=== PATIENT | male | born 1970 | race Caucasian/White ===

== ENCOUNTER 2018-08-06 10:30 | Inpatient (IN) | payer OTHER ==
[2018-08-06] VITALS (12 sets, daily range): BP systolic 140–170; BP diastolic 83–103; Ht 180.3 cm; Wt 100.0 kg
[~2018-08-06] VITALS: Ht 180.3 cm; Wt 100.0 kg
--- NOTE | ~2018-08-06 | HEMODYNAMI ---
PATIENT:MAUDE PERSAUD MEDICAL RECORD: [id number] : 66 LOCATION:[facility] ADMISSION DATE: 08/06/18 Generatedon:08/06/201814:22 Patient name: MAUDE PERSAUD Patient #: [id number] SSN: : 1970 Date of study: 08/06/2018 Page: Of Hemodynamic Procedure Report Patient Data Patient Demographics Procedure consent was obtained First Name: MAUDE Gender: Male Last Name: CORI : 1970 [facility] Initial: JULIO Age: 47 year(s) Patient #: [id number] Race: Unknown Additional ID: [id number] Contact details [address]: [address] [place] [address] rd State: [place] City: [place] Zip code: [address] Past Medical History Allergies Allergen Reaction Date Comments Reported Penicillins 08/06/2018 Admission Admission Data Admission Date: 08/06/2018 Admission Time: 10:30 Lab Results Lab Result Date: 08/06/2018 Lab Result Time: 0:00 Biochemistry Name Units Result Min Max BUN mg/dl 13 --(--*-)-- 7 18 Creatinine mg/dl 1 --(--*-)-- 0.6 1.3 CBC Name Units Result Min Max Hemoglobin g/dl 14.6 --(-*--)-- 13.5 17.5 Procedure Procedure Types Cath Procedure Diagnostic Procedure LHC LH w/Coronaries Sedation Charges Moderate Sedation up to 45 minutes PCI Procedure Coronary Stent Coronary Stent Initial Peripheral Cath Diagnostic Procedure Supercalender Operator Peripheral Procedures Xmnze-Bbemome-Bbi-Off Procedure Description Procedure Date Procedure Date: 08/06/2018 Procedure Start Time: 13:15 Procedure End Time: 14:20 Procedure Staff Name Function Marshal Shankar MD Performing Physician Eugenia Benavidez RT Monitor James Haywood RT Scrub Frederick Bardales RT Carpet Sewing Machine Operator Michael Christensen RN Nurse Procedure Data Cath Procedure Fluoroscopy Diagnostic fluoroscopy Total fluoroscopy Time: time: 21.8 min 21.8 min Diagnostic fluoroscopy Total fluoroscopy dose: dose: 3617 mGy 3617 mGy Contrast Material Contrast Material Type Amount (ml) Isovue 300 323 Entry Location Entry Primary Successful Side Size Upsize Upsize Entry Closure Succes sful Closure Location (Fr) 1 (Fr) 2 (Fr) Remarks Device Remarks Femoral Right 5 Fr 6 Fr Exoseal artery Short Estimated blood loss: 10 ml Diagnostic catheters Device Type Used For End Catheter Placement MULTIPACK JL 4.0 5Fr Procedure catheter MULTIPACK 3DRC 5Fr Procedure catheter MULTIPACK Pigtail 5 Fr Procedure catheter Procedure Complications No complications Procedure Medications Medication Administration Route Dosage Oxygen etCO2 Nasal cannula 2 l/min Lidocaine 2% added to field 20 Heparin Flush Bag added to field 2 bags (1000units/500ml NS) 0.9% NaCl I.V. 100 ml/hr Versed I.V. 2 mg Fentanyl I.V. 100 mcg Versed I.V. 1 mg Fentanyl I.V. 50 mcg Heparin Bolus I.V. 4000 units Integrilin (Bolus I.V. 8.5 ml 2mg/ml) Vasotec 2.5 mg Versed I.V. 2 mg Fentanyl I.V. 50 mcg Heparin Bolus I.V. 2000 units Versed I.V. 1 mg Fentanyl I.V. 100 mcg Clonidine P.O. 0.1 mg Plavix P.O. 600 mg Hemodynamics Rest HGB: 14.6 (g/dl) Heart Rate: 65 (bpm) Pressure Samples Time Site Value (mmHg) Purpose Heart Use Rate(bpm) 13:22 LV 217/24,52 Snapshot 69 13:22 AO 159/99(123) Pullback 74 13:22 LV 177/13,40 Pullback 74 13:29 AO 148/76(107) Snapshot 83 13:29 AO 153/64(97) Snapshot 81 13:29 AO 151/63(95) Snapshot 79 13:49 AO 199/108(143) Snapshot 72 Gradients Valve Time Site 1 Site 2 Mean SEP/DFP Peak To Heart Use (mmHg) (sec/min) Peak Rate (mmHg) (bpm) Aortic 13:22 LV AO 16 18 18 74 177/13,40 159/99(123) Calculations Valve P-P Mean Valve Index Valve Source Name Gradient Area Flow (cm2) Aortic 18 16 18 16 Snapshots Pre Cath Intra NCS Post Cath Vital Signs Time Heart Resp SPO2 etCO2 NIBP (mmHg) Rhythm Pain Sedation Rate (ipm) (%) (mmHg) Status Level (bpm) 13:00:45 58 19 98 0 180/94(139) NSR 0 (11) 10(A) , No pain 13:05:03 72 22 99 34.9 168/96(145) NSR 0 (11) 10(A) , No pain 13:09:21 65 17 98 37.1 161/91(105) NSR 0 (11) 10(A) , No pain 13:17:08 83 12 97 1.5 195/102(0) NSR 0 (11) 9(A) , No pain 13:20:49 64 18 94 29.6 141/107(140) NSR 0 (11) 9(A) , No pain 13:27:10 65 15 94 46.2 160/86(0) NSR 0 (11) 9(A) , No pain 13:29:58 81 18 94 25.7 158/96(136) NSR 0 (11) 9(A) , No pain 13:34:28 60 16 99 44.7 174/110(0) NSR 0 (11) 9(A) , No pain 13:38:57 57 15 100 36.4 182/119(165) NSR 0 (11) 9(A) , No pain 13:43:25 62 14 100 37.9 196/107(145) NSR 0 (11) 9(A) , No pain 13:47:55 73 18 100 35.6 203/113(170) NSR w/ ST 6 (11) 10(A) Elevation , Intense 13:52:26 78 19 100 28.8 198/126(174) NSR w/ ST 6 (11) 9(A) Elevation , Intense 13:58:08 79 17 98 32.6 203/124(155) NSR w/ ST 0 (11) 9(A) Elevation , No pain 14:02:34 76 14 99 17.4 180/102(164) NSR 0 (11) 9(A) , No pain 14:07:51 73 17 96 45.5 200/95(155) NSR 0 (11) 10(A) , No pain 14:12:05 79 14 99 34.1 166/98(154) NSR 0 (11) 10(A) , No pain 14:16:24 75 15 94 38.6 159/122(152) NSR 0 (11) 10(A) , No pain 14:21:43 75 10 99 34.8 171/101(149) NSR 0 (11) 10(A) , No pain Medications Time Medication Route Dose Verified Delivered Reason Notes Effectiveness by by 13:00:31 Oxygen etCO2 2 Marshal Buffie used for Nasal l/min [facility] Jean Christensen RN procedure cannula 13:00:38 Lidocaine 2% added 20ml Marshal Marshal for local to vial [facility] anesthetic field MD MAC 13:00:44 Heparin Flush added 2 Marshal Marshal used for Bag to bags [facility] procedure (1000units/500ml field MD MAC NS) 13:00:55 0.9% NaCl I.V. 100 Marshal Buffie Per physician ml/hr [facility] Jean Christensen RN, MD 13:10:12 Versed I.V. 2 mg Marshal Buffie for sedation [facility] Jean Christensen RN, MD 13:10:18 Fentanyl I.V. 100 Marshal Buffie for sedation mcg [facility] Jean Christensen RN, MD 13:20:37 Versed I.V. 1 mg Marshal Buffie for sedation [facility] Jean Christensen RN, MD 13:20:41 Fentanyl I.V. 50 Marshal Buffie for sedation mcg [facility] Jean Christensen RN, MD 13:26:25 Heparin Bolus I.V. 4000 Marshal Buffie for verif ied units [facility] Jean Christensen RN anticoagulation with dr MD flores 13:27:37 Integrilin I.V. 8.5 Marshal Buffie for Waste d (Bolus 2mg/ml) ml [facility] Jean Christensen RN antiplatelet 1.5 ml MD therapy of vial 13:44:12 Vasotec IV 2.5 Marshal Buffie Per physician mg [facility] Jean Christensen RN, MD 13:49:46 Versed I.V. 2 mg Marshal Buffie for sedation [facility] Jean Christensen RN, MD 13:49:50 Fentanyl I.V. 50 Marshal Buffie for sedation mcg [facility] Jean Christensen RN, MD 13:54:28 Heparin Bolus I.V. 2000 Marshal Buffie for verif ied units [facility] Jean Christensen RN anticoagulation with dr MD flores 14:02:04 Versed I.V. 1 mg Marshal Buffie for sedation [facility] Jean Christensen RN, MD 14:02:08 Fentanyl I.V. 100 Marshal Buffie for sedation [facility] Christensen RN, MD 14:15:14 Clonidine P.O. 0.1 [address] Rodriguez for mg [facility] Jean Christensen RN hypertension MD 14:15:19 Plavix P.O. 600 Marshal Rodriguez for mg [facility] Jean Christensen RN antiplatelet MD therapy Procedure Log Time Note 12:30:44 Signed procedure consent form obtained from patient. 12:30:46 Diagnostic Cath status Elective 12:41:24 Patient allergic to Penicillins 12:42:57 Lab Result : Creatinine 1 mg/dl 12::57 Lab Result : BUN 13 mg/dl 12:42:57 Lab Result : Hemoglobin 14.6 g/dl 12:46:51 Frederick Bardales RT(R) sent for patient. Start room use. 12:46:52 Time tracking: Regular hours (M-F 7:00 - 5:00) 12:46:55 Plan of Care:Hemodynamics will remain stable., Cardiac rhythm will remain stable., Comfort level will be maintained., Respiratory function will remain adequate., Patient/ family verbilizes understanding of procedure., Procedure tolerated without complication., Recovers from procedure without complications.. 12:53:52 Patient received from Pre/Post Procedure Room to CCL 2 Alert and oriented. Tansferred to table in Supine position. 12:53:53 Warm blankets applied, and jerson hugger turned on for patient comfort. 12:53:53 Correct patient and procedure confirmed by team. 12:53:55 ECG and BP/O2 sat monitors applied to patient. 12:59:33 Vital chart was started 12:59:34 Baseline sample Acquired. 12:59:38 Rhythm: sinus rhythm 12:59:39 Full Disclosure recording started 12:59:57 H&P Date Dictated: 07/30/2018 Within 30 days and on chart., New H&P dictated by physician.. 12:59:58 Pre-procedure instructions explained to patient. 12:59:58 Pre-op teaching completed and patient verbalized understanding. 13:00:18 Family in patients room. 13:00:22 Patient NPO since Midnight. 13:00:24 Is patient on blood thinner?No 13:00:25 Patient diabetic? No. 13:00:31 Oxygen 2 l/min etCO2 Nasal cannula was administered by Michael Christensen RN; used for procedure; 13:00:33 Previous problem with sedation/anesthesia? No ? 13:00:34 Snore? No 13:00:35 Sleep apnea? No 13:00:36 Deviated septum? No 13:00:37 Opens mouth fully? Yes 13:00:37 Sticks out tongue? Yes 13:00:38 Lidocaine 2% 20ml vial added to field was administered by Marshal Shankar MD; for local anesthetic; 13:00:39 Airway obstruction? No ? 13:00:41 Dentures? No ? 13:00:44 Heparin Flush Bag (1000units/500ml NS) 2 bags added to field was administered by Marshal Shankar MD; used for procedure; 13:00:55 0.9% NaCl 100 ml/hr I.V. was administered by Michael Christensen RN; Per physician; 13:00:57 Pre procedure: left dorsailis pedis pulse 1+ Palpable, but thready & weak; easily obliterated 13:01:00 Pre procedure: right dorsailis pedis pulse 2+ Normal; easily identifiable; not easily obliterated 13:01:07 IV patent on arrival in left antecubital with 0.9% NaCl at [facility]. 13:01:09 Lab results completed and on chart. 13:01:12 Bilateral groins area was prepped with chlora-prep and draped in sterile fashion 13:01:13 Alarms reviewed by R. N. 13:01:13 Sharps counted by scrub and verified by R.N. 13:01:21 Use device set Femoral Dx 13:01:22 ACIST Syringe (67708) opened to sterile field. 13:01:22 Bag Decanter (2002S) opened to sterile field. 13:01:24 ACIST Hand Control (03963) opened to sterile field. 13:01:24 ACIST Manifold (93728) opened to sterile field. 13:01:26 Tegaderm 4 x 4 (1626W) opened to sterile field. 13:01:28 Medline Cath Pack ([id number]) opened to sterile field. 13:01:28 DIAGNOSTIC WIRE .035 260cm J wire (549700) opened to sterile field. 13:01:30 DIAGNOSTIC Multipack 5Fr catheter set (NS2911) opened to sterile field. 13:01:31 SHEATH 5FR [place] (ZGX962) opened to sterile field. 13:05:54 --------ALL STOP TIME OUT------ 13:05:54 Final Timeout: patient, procedure, and site verified with staff and physician. All members of the team are in agreement. 13:05:58 Bilateral groins site verified by team. 13:06:00 Fire Safety Assessment: A--An alcohol-based skin anteseptic being used preoperatively., C--Open oxygen or nitrous oxide is being used., D--An ESU, laser, or fiber-optic light is being used. 13:06:04 Physical assessment completed. ASA score P 2 - A patient with mild systemic disease as per Marshal Shankar MD. 13:06:07 Sedation plan: IV Moderate Sedation Medication:Versed, Fentanyl 13:10:12 Versed 2 mg I.V. was administered by Michael Christensen RN; for sedation; 13:10:18 Fentanyl 100 mcg I.V. was administered by Michael Christensen RN; for sedation; 13:15:28 Procedure started. 13:15:34 Local anesthetic to right femoral artery with Lidocaine 2% by Marshal Shankar MD.INITIAL ACCESS ONLY 13:16:59 A 5 Fr sheath was inserted into the Right Femoral artery 13:17:32 A MULTIPACK JL 4.0 5Fr catheter was advanced over the wire and used for Procedure. 13:19:29 LCA angiography performed. 13:19:31 Catheter removed. 13:19:35 A MULTIPACK 3DRC 5Fr catheter was advanced over the wire and used for Procedure. 13:20:37 Versed 1 mg I.V. was administered by Michael Christensen RN; for sedation; 13:20:41 Fentanyl 50 mcg I.V. was administered by Michael Christensen RN; for sedation; 13:21:03 RCA angiography performed. 13:21:08 Catheter removed. 13:21:13 A MULTIPACK Pigtail 5 Fr catheter was advanced over the wire and used for Procedure. 13:21:57 LV gram done using CADENA 13:22:04 Injector settings: Ml/sec: 10, Volume: 20, 13:22:51 LV hemodynamics recorded. 13:22:56 EF : 55 % 13:23:20 PIGTAIL PULLED DOWN FOR AFRO 13:23:41 Abdominal angiogram w/ runoff was performed. 13:24:15 Left leg runoff performed. 13:24:35 Right leg runoff performed. 13:25:07 Catheter removed. 13:25:30 INFLATOR Merit BasixCompak (GQ3773) opened to sterile field. 13:25:31 SHEATH 6FR [place] (DIZ136) opened to sterile field. 13:25:31 WHISPER 300cm guide wire ([id number]) opened to sterile field. 13:25:32 GUIDE 6FR HS I catheter (LA6HSI) opened to sterile field. 13:26:09 Sheath upsized to a 6 Fr Short. 13:26:25 Heparin Bolus 4000 units I.V. was administered by Michael Christensen RN; for anticoagulation; verified with dr flores 13:27:01 6 Fr HS 1 guide catheter was inserted over the wire 13:27:37 Integrilin (Bolus 2mg/ml) 8.5 ml I.V. was administered by Michael Christensen RN; for antiplatelet therapy; Wasted 1.5 ml of vial 13:28:18 Guide Catheter removed. unable to cannulate vessel. 13:28:57 GUIDE 6FR AR 1.0 catheter (SA0ER67) opened to sterile field. 13:29:16 6 Fr AR 1 guide catheter was inserted over the wire 13:30:26 WHISPER 300 wire advanced. 13:32:23 Wire advanced across lesion. 13:33:39 Inflate balloon Inflation number: 1 A EMERGE OTW 3.5 x 15 balloon ([id number]) was prepped and advanced across the Dist RCA, then inflated to 12 DOYLE for 0:15 (min:sec). 13:34:34 Inflation number: 1 The EMERGE OTW 3.5 x 15 balloon ([id number]) was reinflated across the Prox RCA, to 14 DOYLE for 0:15 (min:sec). 13:35:29 Balloon removed over the wire. 13:38:35 Place stent Inflation Number: 2 A QUETA OTW 3.5 x 18 stent ([id number]) was prepped and advanced across the Dist RCA. The stent was deployed at 12 DOYLE for 0:15 (min:sec). 13:39:29 Stent catheter was removed intact over wire. 13:44:12 Vasotec 2.5 mg IV was administered by Michael Christensen RN; Per physician; 13:45:01 WHISPER 300cm guide wire ([id number]) opened to sterile field. 13:45:14 NEW WHIPSER WIRE ADVANCED 13:49:46 Versed 2 mg I.V. was administered by Michael Christensen RN; for sedation; 13:49:50 Fentanyl 50 mcg I.V. was administered by Michael Christensen RN; for sedation; 13:50:27 The QUETA RX 3.5 x 12 stent ([id number]) was advanced then removed because of failure to cross lesion 13:54:28 Heparin Bolus 2000 units I.V. was administered by Michael Christensen RN; for anticoagulation; verified with dr flores 13:59:17 Place stent Inflation Number: 1 A QUETA OTW 3.5 x 30 stent ([id number]) was prepped and advanced across the Mid RCA. The stent was deployed at 14 DOYLE for 0:15 (min:sec). 14:01:37 Stent catheter was removed intact over wire. 14:02:04 Versed 1 mg I.V. was administered by Michael Christensen RN; for sedation; 14:02:08 Fentanyl 100 mcg I.V. was administered by Michael Christensen RN; for sedation; 14:05:57 Place stent Inflation Number: 3 A QUETA OTW 3.0 x 30 stent ([id number]) was prepped and advanced across the Dist RCA. The stent was deployed at 14 DOYLE for 0:20 (min:sec). 14:06:32 Stent catheter was removed intact over wire. 14:09:59 Place stent Inflation Number: 2 A QUETA RX 3.5 x 12 stent ([id number]) was prepped and advanced across the Prox RCA. The stent was deployed at 16 DOYLE for 0:00 (min:sec). 14:11:02 Guide catheter removed. 14:11:06 Wire removed. 14:11:06 Stent catheter was removed intact over wire. 14:11:36 EXOSEAL 6Fr (EX600) opened to sterile field. 14:11:52 Sheath removed intact; hemostasis achieved with Exoseal to the Right Femoral artery. 14:11:57 Procedure ended.(Physican Out) 14:12:19 Fluoroscopy time 21.80 minutes. 14:12:26 Flurop Dose total: 3617 14:12:26 Fluoroscopy dose: 3617 mGy 14:12:38 Contrast amount:Isovue 300 323ml. 14:12:40 Sharps counted by scrub and verified by R.N. 14:12:43 Post-op/insertion site Right Femoral artery dressed using a 4 x 4 and Tegaderm. 14:12:45 Post-procedure physical assessment completed. ASA score P 2 - A patient with mild systemic disease as per Marshal Shankar MD. 14:12:50 Post procedure rhythm: sinus rhythm 14:12:52 Estimated blood loss: 10 ml 14:12:55 Post procedure instruction explained to patient.Patient verbalizes understanding. 14:12:55 Patient needs reinforcement of post procedure teaching. 14:13:47 Procedure type changed to Cath procedure, Diagnostic procedure, LHC, LHC w/Coronaries, Sedation Charges, Moderate Sedation up to 45 minutes, PCI procedure, Coronary Stent, Coronary Stent Initial, Peripheral Cath Diagnostic Procedure, Supercalender Operator Peripheral Procedures, Zopat-Gehalue-Rqm-Off 14:14:22 Procedure and supply charges have been captured, reviewed, submitted and are correct. 14:14:26 Procedure Complication : No complications 14:15:14 Clonidine 0.1 mg P.O. was administered by Michael Christensen RN; for hypertension; 14:15:19 Plavix 600 mg P.O. was administered by Michael Christensen RN; for antiplatelet therapy; 14:20:48 Vital chart was stopped 14:20:48 See physician's report for complete and final results. 14:20:51 Report given to Pre/Post Procedure Room. 14:20:53 Patient transfered to Pre/Post Procedure Room with Bed. 14:20:56 Procedure ended. 14:20:56 Full Disclosure recording stopped 14:21:02 End room use (Document Last) Intervention Summary Intervention Notes Time ActionType Lesion and Equipment Used Action# Pressure Duration Attributes 13:33:39 Inflate Dist RCA EMERGE OTW 3.5 1 12 00:15 balloon x 15 balloon ([id number]) 13:34:34 Reinflate Prox RCA EMERGE OTW 3.5 1 14 00:15 balloon x 15 balloon ([id number]) 13:38:35 Place stent Dist RCA QUETA OTW 3.5 x 2 12 00:15 18 stent ([id number]) 13:50:27 Discard QUETA RX 3.5 x Stent 12 stent ([id number]) 13:59:17 Place stent Mid RCA QUETA OTW 3.5 x 1 14 00:15 30 stent ([id number]) 14:05:57 Place stent Dist RCA QUETA OTW 3.0 x 3 14 00:20 30 stent ([id number]) 14:09:59 Place stent Prox RCA QUETA RX 3.5 x 2 16 00:00 12 stent ([id number]) Device Usage Item Name Manufacture Quantity Catalog Number Hospital Part Current Minimal Lot# / Charge Number Stock Stock Serial# Code ACIST Syringe Acist 1 43347 923774 253580 555961 20 (49891) Medical Systems Inc Bag Decanter Microtek 1 2001S 194128 18320 540861 5 (2001S) Medical Inc. ACIST Hand Acist 1 81964 378394 259485 233101 5 Control Medical (38952) Systems Inc ACIST Manifold Acist 1 27320 010723 613226 288882 5 (60612) Medical Systems Inc Tegaderm 4 x 4 3M 1 1626W 523238 401009 545016 5 (1626W) Medline Cath Medline 1 [id number] 644857 30674 110173 5 Pack ([id number]) DIAGNOSTIC St Be 1 653187 372173 025033 868297 30 WIRE .035 260cm J wire (067896) DIAGNOSTIC Cardinal 1 LB1906 500624 25893 914493 30 Multipack 5Fr Health catheter set (FY4579) SHEATH 5FR Terumo 1 LXU750 082988 976243 503343 5 [place] (EBD093) MULTIPACK JL Cardinal 1 935231 5 4.0 5Fr Health catheter MULTIPACK 3DRC Cardinal 1 159694 5 5Fr catheter Health MULTIPACK Cardinal 1 885916 5 Pigtail 5 Fr Health catheter INFLATOR Merit Merit 1 YT2770 411904 565804 912650 15 Maxtena Medical (AY4377) SHEATH 6FR Terumo 1 DWG301 902332 606697 073922 40 [place] (DIU169) WHISPER 300cm Burrows 2 [id number] 171041 254196 183075 5 guide wire Vascular ([id number]) GUIDE 6FR HS I Medtronic 1 LA6HSI 090511 81135 979015 1 catheter (LA6HSI) GUIDE 6FR AR Medtronic 1 VC4OI51 689673 72048 166438 1 1.0 catheter (UA9ER68) EMERGE OTW 3.5 Barnum 1 [id number] 189301 992460 719454 5 [id number] x 15 balloon Scientific ([id number]) QUETA OTW 3.5 x Medtronic 1 [id number] 437808 6386938 753423 5 [id number] 18 stent ([id number]) QUETA RX 3.5 x Medtronic 1 [id number] 789989 4630007 339642 5 [id number] 12 stent ([id number]) QUETA OTW 3.5 x Medtronic 1 [id number] 008214 0357190 815018 5 [id number] 30 stent ([id number]) QUETA OTW 3.0 x Medtronic 1 [id number] 941842 9873287 942990 5 [id number] 30 stent ([id number]) EXOSEAL 6Fr Cardinal 1 EX600 235041 497600 889485 10 (EX600) Health Signature Audit [place] Stage Time Signature Unsigned Intra-Procedure 08/06/2018 Eugenia Benavidez 2:22:28 PM RT(R) Signatures Monitor : Eugenia Benavidez Signature : RT Date : Time : [id number] [place] [address]
--- NOTE | ~2018-08-06 | HEMODYNAMI ---
PATIENT:MAUDE PERSAUD MEDICAL RECORD: [id number] : 66 LOCATION:[facility] D.CV03 ADMISSION DATE: 08/06/18 Generatedon:08/06/201820:08 Patient name: MAUDE PERSAUD Patient #: [id number] SSN: : 1970 Date of study: 08/06/2018 Page: Of Hemodynamic Procedure Report Patient Data Patient Demographics Procedure consent was obtained First Name: MAUDE Gender: Male Last Name: CORI : 1970 [facility] Initial: JULIO Age: 47 year(s) Patient #: [id number] Race: Unknown Additional ID: [id number] Contact details Address: [address] [place] [address] rd State: [place] City: [place] Zip code: [address] Past Medical History Allergies Allergen Reaction Date Comments Reported Penicillins 08/06/2018 Admission Admission Data Admission Date: 08/06/2018 Admission Time: 19:57 Room #: D.CV03 Lab Results Lab Result Date: 08/06/2018 Lab Result Time: 0:00 Biochemistry Name Units Result Min Max BUN mg/dl 13 --(--*-)-- 7 18 Creatinine mg/dl 1 --(--*-)-- 0.6 1.3 CBC Name Units Result Min Max Hemoglobin g/dl 14.6 --(-*--)-- 13.5 17.5 Procedure Procedure Types Cath Procedure PCI Procedure AMI/SVG/PAINT SPRAYER SANDBLASTER PTCA or Stent AMI-BMS/EFRA Initial Procedure Description Procedure Date Procedure Date: 08/06/2018 Procedure Start Time: 19:12 Procedure End Time: 20:06 Procedure Staff Name Function Marshal Shankar MD Performing Physician Dale Riggins RT Monitor Eugenia Benavidez RT Scrub Srinivas Hernandez RN Nurse Procedure Data Cath Procedure Fluoroscopy Diagnostic fluoroscopy Total fluoroscopy Time: time: 10.8 min 10.8 min Diagnostic fluoroscopy Total fluoroscopy dose: 989 dose: 989 mGy mGy Contrast Material Contrast Material Type Amount (ml) Isovue 300 37 Entry Location Entry Primary Successful Side Size Upsize Upsize Entry Closure Succes sful Closure Location (Fr) 1 (Fr) 2 (Fr) Remarks Device Remarks Femoral Right 6 Fr artery Short Estimated blood loss: 10 ml Procedure Complications No complications Procedure Medications Medication Administration Route Dosage Oxygen etCO2 Nasal cannula 2 l/min Heparin Flush Bag added to field 2 bags (1000units/500ml NS) 0.9% NaCl I.V. 100 ml/hr Lidocaine 2% added to field 20 Fentanyl I.V. 50 mcg Versed I.V. 1 mg Fentanyl I.V. 50 mcg Versed I.V. 1 mg Fentanyl I.V. 100 mcg Heparin Bolus I.V. 5000 units Integrilin (Bolus I.V. 8.5 ml 2mg/ml) Integrilin (Bolus wasted 1.5 ml 2mg/ml) Integrilin Drip I.V. drip 14.7 ml/hr (75mg/100ml) Integrilin (Bolus I.C. 8.5 ml 2mg/ml) Integrilin (Bolus wasted 1.5 ml 2mg/ml) Nitroglycerin IC/IA I.C. 200 mcg Effient P.O. 60 mg Hemodynamics Rest HGB: 14.6 (g/dl) Heart Rate: 74 (bpm) Pressure Samples Time Site Value (mmHg) Purpose Heart Use Rate(bpm) 19:17 AO 159/96(120) Snapshot 86 19:23 AO 162/98(126) Snapshot 85 19:27 AO 148/85(112) Snapshot 83 19:28 AO 145/88(114) Snapshot 90 19:35 AO 134/78(103) Snapshot 68 Snapshots Pre Cath Intra NCS Post Cath Vital Signs Time Heart Resp SPO2 etCO2 NIBP (mmHg) Rhythm Pain Sedation Rate (ipm) (%) (mmHg) Status Level (bpm) 19:09:57 73 17 98 0 Measuring NSR 0 (11) 10(A) , No pain 19:10:50 81 16 99 0 194/124(166) NSR 0 (11) 10(A) , No pain 19:15:35 80 16 96 0 189/133(165) NSR 0 (11) 10(A) , No pain 19:20:14 82 17 0 167/122(163) NSR 0 (11) 9(A) , No pain 19:24:46 88 17 98 0 185/125(150) NSR 0 (11) 9(A) , No pain 19:29:16 96 17 96 0 175/105(138) NSR 0 (11) 9(A) , No pain 19:33:51 88 17 97 0 137/100(131) NSR 0 (11) 9(A) , No pain 19:38:09 89 17 98 0 157/99(147) NSR 0 (11) 9(A) , No pain 19:42:33 88 16 99 0 164/111(125) NSR 0 (11) 9(A) , No pain 19:46:55 87 16 99 0 160/108(141) NSR 0 (11) 9(A) , No pain 19:51:26 90 17 99 0 176/101(139) NSR 0 (11) 9(A) , No pain 19:56:00 92 17 100 0 187/108(139) NSR 0 (11) 9(A) , No pain 20:01:56 98 16 99 0 177/104(129) NSR 0 (11) 9(A) , No pain 20:06:15 83 11 100 0 146/93(125) NSR 0 (11) 10(A) , No pain Medications Time Medication Route Dose Verified Delivered Reason Notes Effectiveness by by 19:08:31 Oxygen etCO2 2 Marshal Espino Per physician Nasal l/min St Jean Hernandez RN cannula 19:08:39 Heparin Flush added 2 Marshal Espino used for Bag to bags St Jean Hernandez RN procedure (1000units/500ml field MAC NS) 19:08:48 0.9% NaCl I.V. 100 Marshal Espino Per physician ml/hr St Jean Hernandez RN, MD 19:08:55 Lidocaine 2% added 20ml Marshal Espino used for to vial St Jean Hernandez RN procedure field MAC 19:09:24 Fentanyl I.V. 50 Marshal Espino for sedation mcg St Jean Hernandez RN, MD 19:09:30 Versed I.V. 1 mg Marshal Espino for sedation St Jean Hernandez RN, MD 19:13:01 Fentanyl I.V. 50 Marshal Espino for sedation mcg St eJan Hernandez RN, MD 19:13:04 Versed I.V. 1 mg Marshal Espino for sedation St Jean Hernandez RN, MD 19:16:01 Fentanyl I.V. 100 Marshal Espino for sedation mcg St Jean Hernandez RN, MD 19:16:11 Heparin Bolus I.V. 5000 Marshal Espino for units [facility] Jean Hernandez RN anticoagulation 19:17:17 Integrilin I.V. 8.5 Marshal Espino for (Bolus 2mg/ml) ml St Jean Hernandez RN antiplatelet MD therapy 19:21:14 Integrilin wasted 1.5 Marshal Espino for (Bolus 2mg/ml) ml St Jean Hernandez RN antiplatelet therapy 19:21:59 Integrilin Drip I.V. 14.7 Marshal Espino for (75mg/100ml) drip ml/hr St Jean Hernandez RN antiplatelet therapy 19:29:38 Integrilin I.C. 8.5 Marshal Araya for (Bolus 2mg/ml) ml St Jean Azul MD, MD therapy 19:29:47 Integrilin wasted 1.5 Marshal Araya for (Bolus 2mg/ml) ml St Jean Auzl MD, MD therapy 19:32:31 Nitroglycerin I.C. 200 Marshal Araya for IC/IA mcg St Jean Dukes MD, MD 20:02:24 Effient P.O. 60 mg Marshal Araya for St Jean Shankar antiplatelet MD MAC therapy Procedure Log Time Note 19:00:54 Srinivas Hernandez RN sent for patient. Start room use. 19:00:56 Signed procedure consent form obtained from patient. 19:07:55 Time tracking: Call back (After hours or weekends) 19:07:59 Plan of Care:Hemodynamics will remain stable., Cardiac rhythm will remain stable., Comfort level will be maintained., Respiratory function will remain adequate., Patient/ family verbilizes understanding of procedure., Procedure tolerated without complication., Recovers from procedure without complications.. 19:08:00 Patient arrives emergently. 19:08:06 Patient received from Pre/Post Procedure Room to CCL 1 Alert and oriented. Tansferred to table in Supine position. 19:08:07 Vital chart was started 19:08:07 Warm blankets applied, and jerson hugger turned on for patient comfort. 19:08:07 Correct patient and procedure confirmed by team. 19:08:08 Baseline sample Acquired. 19:08:08 ECG and BP/O2 sat monitors applied to patient. 19:08:13 Rhythm: w/ ST elevation 19:08:15 Full Disclosure recording started 19:08:20 H&P Date Dictated: 08/06/2018 Emergent; H&P N/A. 19:08:20 Pre-procedure instructions explained to patient. 19:08:21 Pre-op teaching completed and patient verbalized understanding. 19:08:24 Family in waiting room. 19:08:26 Patient NPO since Midnight. 19:08:28 Is the patient allergic to Iodine/contrast media? No. 19:08:29 Is patient on blood thinner?Yes 19:08:31 Oxygen 2 l/min etCO2 Nasal cannula was administered by Srinivas Hernandez RN; Per physician; 19:08:31 ACC The patient was administered the following blood thiners within the last 24 hours: ACCPlavix 19:08:37 Pre procedure: left dorsailis pedis pulse 1+ Palpable, but thready & weak; easily obliterated 19:08:39 Heparin Flush Bag (1000units/500ml NS) 2 bags added to field was administered by Srinivas Hernandez RN; used for procedure; 19:08:47 IV patent on arrival in left forearm with 0.9% NaCl at [facility]. 19:08:48 0.9% NaCl 100 ml/hr I.V. was administered by Srinivas Hernandez RN; Per physician; 19:08:52 Left groin area was prepped with chlora-prep and draped in sterile fashion 19:08:53 Alarms reviewed by R. N. 19:08:54 Sharps counted by scrub and verified by R.N. 19:08:55 Lidocaine 2% 20ml vial added to field was administered by Srinivas Hernandez RN; used for procedure; 19:08:55 --------ALL STOP TIME OUT------ 19:08:56 Final Timeout: patient, procedure, and site verified with staff and physician. All members of the team are in agreement. 19:08:57 Left groin site verified by team. 19:09:01 Fire Safety Assessment: A--An alcohol-based skin anteseptic being used preoperatively., C--Open oxygen or nitrous oxide is being used., D--An ESU, laser, or fiber-optic light is being used. 19:09:04 Physical assessment completed. ASA score P 3 - A patient with severe systemic disease as per Marshal Shankar MD. 19::07 Sedation plan: IV Moderate Sedation Medication:Versed, Fentanyl 19:09:24 Fentanyl 50 mcg I.V. was administered by Srinivas Hernandez RN; for sedation; 19:09:30 Versed 1 mg I.V. was administered by Srinivas Hernandez RN; for sedation; 19:11:35 Use device set Femoral Dx 19:11:37 Use device set SKYLER PCI 19:11:40 ACIST Manifold (07556) opened to sterile field. 19:11:41 ACIST Hand Control (79968) opened to sterile field. 19:11:42 ACIST Syringe (59757) opened to sterile field. 19:11:43 Bag Decanter (2002S) opened to sterile field. 19:11:44 Medline Cath Pack ([id number]) opened to sterile field. 19:11:46 Tegaderm 4 x 4 (1626W) opened to sterile field. 19:11:47 DIAGNOSTIC WIRE .035 260cm J wire (672838) opened to sterile field. 19:11:50 INFLATOR Merit BasixCompak (IO7794) opened to sterile field. 19:11:52 WHISPER 300cm guide wire ([id number]) opened to sterile field. 19:11:55 SHEATH 6FR [place] (UAV641) opened to sterile field. 19:11:56 GUIDE 6FR AR 1.0 catheter (VM4DV51) opened to sterile field. 19:12:07 Procedure started. 19:12:10 Local anesthetic to left femerol artery with Lidocaine 2% by Marshal Shankar MD.INITIAL ACCESS ONLY 19:13:01 Fentanyl 50 mcg I.V. was administered by Srinivas Hernandez RN; for sedation; 19:13:04 Versed 1 mg I.V. was administered by Srinivas Hernandez RN; for sedation; 19:13:25 A 6 Fr Short sheath was inserted into the Right Femoral artery 19:13:47 6 Fr AR 1 guide catheter was inserted over the wire 19:16:01 Fentanyl 100 mcg I.V. was administered by Srinivas Hernandez RN; for sedation; 19:16:07 Whisper wire advanced. 19:16:11 Heparin Bolus 5000 units I.V. was administered by Srinivas Hernandez RN; for anticoagulation; 19:17:17 Integrilin (Bolus 2mg/ml) 8.5 ml I.V. was administered by Srinivas Hernandez RN; for antiplatelet therapy; 19:17:31 Wire advanced across lesion. 19:20:49 The NC EUPHORA 3.5 x 15 balloon ([id number]) was advanced and then removed because of failure to cross lesion 19:21:14 Integrilin (Bolus 2mg/ml) 1.5 ml wasted was administered by Srinivas Hernandez RN; for antiplatelet therapy; 19:21:59 Integrilin Drip (75mg/100ml) 14.7 ml/hr I.V. drip was administered by Srinivas Hernandez RN; for antiplatelet therapy; 19:22:56 Whisper removed, damaged. New whisper advanced. 19:23:09 WHISPER 300cm guide wire ([id number]) opened to sterile field. 19:25:48 Inflate balloon Inflation number: 1 A MAVERICK 4.0 X 15 balloon ([id number]) was prepped and advanced across the Prox RCA, then inflated to 16 DOYLE for 0:30 (min:sec). 19:27:46 Inflation number: 2 The MAVERICK 4.0 X 15 balloon ([id number]) was reinflated across the Prox RCA, to 4 DOYLE for 0:30 (min:sec). 19:28:49 Multiple inflations to the distal RCA at 4 Atms. 19:29:38 Integrilin (Bolus 2mg/ml) 8.5 ml I.C. was administered by Marshal Shankar MD; for antiplatelet therapy; 19:29:47 Integrilin (Bolus 2mg/ml) 1.5 ml wasted was administered by Marshal Shankar MD; for antiplatelet therapy; 19:32:31 Nitroglycerin IC/IA 200 mcg I.C. was administered by Marshal Shankar MD; for vasodilation; 19:34:49 Balloon removed over the wire. 19:39:30 Inflate balloon Inflation number: 3 A NC EMERGE 4.5 x 8 balloon ([id number]) was prepped and advanced across the Prox RCA, then inflated to 14 DOYLE for 0:30 (min:sec). 19:40:49 Inflation number: 4 The NC EMERGE 4.5 x 8 balloon ([id number]) was reinflated across the Prox RCA, to 16 DOYLE for 0:30 (min:sec). 19:47:29 Balloon removed over the wire. 19:47:29 Wire removed. 19:47:30 Guide catheter removed. 19:47:45 2-0 Silk 685H opened to sterile field. 19:47:58 Procedure ended.(Physican Out) 19:48:16 6fr Femoral Sheath was sutured in with 2-0 Silk. 19:55:03 Insertion/operative site no bleeding no hematoma. 19:55:07 Post-procedure physical assessment completed. ASA score P 3 - A patient with severe systemic disease as per Marshal Shankar MD. 19:55:11 Post procedure rhythm: unchanged. 19:55:15 Estimated blood loss: 10 ml 19:55:17 Post procedure instruction explained to patient.Patient verbalizes understanding. 19:55:17 Patient needs reinforcement of post procedure teaching. 19:55:30 Procedure type changed to Cath procedure, PCI procedure, AMI/SVG/PAINT SPRAYER SANDBLASTER PTCA or Stent, AMI-BMS/EFRA Initial 19:59:37 Fluoroscopy time 10.80 minutes. 19:59:43 Fluoroscopy dose: 989 mGy 19:59:43 Flurop Dose total: 989 20:00:11 Contrast amount:Isovue 300 37ml. 20:01:41 Sharps counted by scrub and verified by R.N. 20:01:55 Procedure and supply charges have been captured, reviewed, submitted and are correct. 20:01:58 Procedure Complication : No complications 20:02:24 Effient 60 mg P.O. was administered by Marshal Shankar MD; for antiplatelet therapy; 20:06:43 Vital chart was stopped 20:06:44 See physician's report for complete and final results. 20:06:52 Report given to CVICU. 20:06:56 Patient transfered to CVICU with Bed. 20:06:59 Procedure ended. 20:06:59 Full Disclosure recording stopped 20:07:37 End room use (Document Last) Intervention Summary Intervention Notes Time ActionType Lesion and Equipment Action# Pressure Duration Attributes Used 19:20:49 Discard NC EUPHORA Balloon 3.5 x 15 balloon ([id number]) 19:25:48 Inflate Prox RCA MAVERICK 4.0 1 16 00:30 balloon X 15 balloon ([id number]) 19:27:46 Reinflate Prox RCA MAVERICK 4.0 2 4 00:30 balloon X 15 balloon ([id number]) 19:39:30 Inflate Prox RCA NC EMERGE 3 14 00:30 balloon 4.5 x 8 balloon ([id number]) 19:40:49 Reinflate Prox RCA NC EMERGE 4 16 00:30 balloon 4.5 x 8 balloon ([id number]) Device Usage Item Name Manufacture Quantity Catalog Number Hospital Part Current Min imal Lot# / Charge Number Stock Stock Serial# Code ACIST Acist 1 85112 425685 635059 768399 5 Manifold Medical (62839) Systems Inc ACIST Hand Acist 1 63943 275177 321735 480058 5 Control Medical (79277) Systems Inc ACIST Acist 1 22210 566899 656767 244993 20 Syringe Medical (54043) Systems Inc Bag Decanter Microtek 1 2001S 052068 31270 892920 5 (2001S) Medical Inc. Medline Cath Medline 1 [id number] 139655 97964 827040 5 Pack ([id number]) Tegaderm 4 x 3M 1 1626W 579484 950354 956663 5 4 (1626W) DIAGNOSTIC St Be 1 979355 682317 027020 646525 30 WIRE .035 260cm J wire (861715) INFLATOR [facility] 1 OW9437 391293 824129 179631 15 [facility] Medical BasixCompak (LL6773) WHISPER Burrows 2 [id number] 393141 003184 309557 5 300cm guide Vascular wire (6812642AV) SHEATH 6FR Terumo 1 KNB776 852437 474467 915233 40 [place] (YHY560) NC EUPHORA Medtronic 1 [id number] 431701 003246 134007 1 [id number] 3.5 x 15 balloon ([id number]) MAVERICK 4.0 Streetman 1 [id number] 744219 479874 306541 1 [id number] X 15 balloon Scientific ([id number]) NC EMERGE Streetman 1 [id number] 866572 469699 534276 5 [id number] 4.5 x 8 Scientific balloon ([id number]) 2-0 Silk Ethicon 1 685H 011587 12809 164565 5 685H GUIDE 6FR AR Medtronic 1 [id number] 812151 32132 627686 1 1.0 catheter (SD6WJ95) Signature Audit Breeden Stage Time Signature Unsigned Intra-Procedure 08/06/2018 Dale Riggins 8:08:12 PM RT(R) Signatures Monitor : Dale Riggins RT Signature : Date : Time : [address] [address]
[~2018-08-06 10:30] MED LIST: BAYER CHEWABLE81 MG PO; COREG 3.1253.125 MG PO; LISINOPRIL10 MG; LISINOPRIL5 MG PO; PLAVIX75 MG PO; PRAVACHOL20 MG; PRAVACHOL40 MG PO
[2018-08-06 11:21] LABS: CALC OSMOLALITY 278 mosm/kg (275-300); CALCIUM 8.9 mg/dL (8.5-10.1); CHLORIDE - SERUM 106 mmol/L (98-107); GLUCOSE 95 mg/dL (74-106); POTASSIUM - SERUM 4.1 mmol/L (3.5-5.1); SODIUM 140 mmol/L (136-145); UREA NITROGEN 13 mg/dL (7-18); eGFR NON AFRICAN AMERICAN 84 mL/min (90-120)
[2018-08-06 11:29] LABS: BASOPHILS 0.8 % (0-2); EOSINOPHILS 5.4 % (0-7); HEMATOCRIT 43.1 % (42.0-54.0); HEMOGLOBIN 14.6 g/dL (13.5-17.5); LYMPHOCYTES 42.1 % (15-50); MCH 31.2 pg (26.0-34.0); MCHC 33.9 g/dL (31.0-37.0); MCV 92.1 fL (80.0-100.0); MEAN PLATELET VOLUME 9.4 fL (7.4-10.4); MONOCYTES 5.4 % (2-11); NEUTROPHILS 46.3 % (40-80); PLATELET COUNT 335 10x3/uL (130-400); RBC 4.68 10x6/uL (4.20-6.10); RDW 14.3 % (11.5-14.5); WBC 6.6 10x3/uL (4.8-10.8)
[2018-08-06] MEDS ORDERED: PLAVIX75 MG PO (14:35)
[2018-08-07] VITALS (16 sets, daily range): BP systolic 110–142; BP diastolic 67–91
[2018-08-07] MEDS ORDERED: EFFIENT10 MG PO (13:19)
--- NOTE | 2018-08-07 13:25 | OP ---
PATIENT NAME: MAUDE PERSAUD MEDICAL RECORD: [id number] :66 LOCATION:[facility] D.CV03 ADMISSION DATE:08/06/18 SURGEON: DARLING HOLLAND MD DATE OF OPERATION: 08/06/2018 PROCEDURE: PTCA stent. 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 This showed a totally occluded right coronary at the area of the proximal stent. This stent, presenting on high pressure inflation, we placed a Whisper wire down this portion of the right easily and using an initial 3.0 balloon restored flow distally, which showed marked thrombus burden. Integrilin was given with marked improvement in thrombus burden, still some distal to the PD; however, we performed multiple inflations including a 4.5 noncompliant balloon up to 16 atmospheres. This still showed marked wasting in the mid portion of the stent. Concern obviously is continued threat for stent closure. He will be kept on Integrilin overnight. Sheath was sewn in place. TRANSINT:[id number] Voice Confirmation ID: [id number] DOCUMENT ID: [id number] DARLING HOLLAND MD at 1325 CC: [id number] DICTATION DATE: 08/06/182007 IS ANALYST: 08/07/18 0145 ADM IN [place] [address] [place] [id number]
--- NOTE | 2018-08-07 13:25 | OP ---
PATIENT NAME: MAUDE PERSAUD MEDICAL RECORD: [id number] :66 LOCATION:[facility] D.CV03 ADMISSION DATE:08/06/18 SURGEON: DARLING HOLLAND MD DATE OF OPERATION: 08/06/2018 PROCEDURE: Left heart catheterization, selective coronary angiography plus AFRO plus intervention to right coronary with stenting of the right, right femoral artery approach. CATHETERS: A 5-Singaporean sheath, 5/4 left and right Lisset, 5/4 pig. FINDINGS: Left ventriculography in 30-degree CADENA view: Normal wall motion. Normal systolic function. CORONARY ANATOMY: LEFT MAIN: Left main is free of disease. LAD: LAD has about 80% discrete stenosis before the takeoff of first diagonal. CIRCUMFLEX: No evidence of restenosis. No progression of [place] disease. RIGHT CORONARY ARTERY: Distal portion with takeoff of PD and PL shows a tight stenosis of 80%. There is also proximal restenosis at the site of the previously placed stent of 90%. PLAN: Intervention to the right momentarily and left at a later date. DESCRIPTION OF PROCEDURE: The 5-Singaporean sheath was exchanged for a 6-Singaporean sheath. AR1 guiding catheter provided good guide catheter support followed by 300-cm Whisper wire placed across both lesions of right coronary down this portion of the vessel. 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 Stents were then placed in the following fashion: Distally, a 3.0 x 30 Juan drug-eluting stent. Other stents were placed in following fashion: A 3.5 x 15, 3.5 x 12, and 3.5 x 30 all [place] drug-eluting stents up to 14 atmospheres. Final angiography shows excellent resolution of two 90% stenoses plus tacky spiral dissection to no significant residual. HAILEY flow was 3 throughout the procedure. We will plan intervention to LAD at a later date. TRANSINT:[id number] Voice Confirmation ID: [id number] DOCUMENT ID: [id number] DARLING HOLLAND MD at 1325 CC: [id number] DICTATION DATE: 08/06/18 1422 HEAD START ASSISTANT TEACHER: 08/06/18 1715 [place] [address]
--- NOTE | 2018-08-07 13:25 | OP ---
PATIENT NAME: MAUDE PERSAUD MEDICAL RECORD: [id number] :66 LOCATION:[facility] Ortiz.CV03 ADMISSION DATE:08/06/18 SURGEON: DARLING HOLLAND MD DATE OF OPERATION: 08/06/2018 PROCEDURE: AFRO. After the pigtail catheter was withdrawn to the level of the renal arteries, aortofemoral runoff was performed. FINDINGS: Nonselective arteriography of right and left renal shows no evidence of stenosis. Abdominal aorta shows no evidence of dissection and no evidence of aneurysm. Right lower extremity runoff, right internal and external iliac shows mild wall disease but no significant stenosis. Right femoral system including deep and superficial shows mild wall disease with no significant stenosis and 2-vessel runoff. Left internal and external iliacs have mild wall disease and no significant stenosis. Left femoral system has smooth wall and is free of disease with 2-vessel runoff. IMPRESSION: No significant peripheral vascular disease. TRANSINT:[id number] Voice Confirmation ID: [id number] DOCUMENT ID: [id number] DARLING HOLLAND MD at 1325 CC: [id number] DICTATION DATE: 08/06/18 1422 OPTION TRADER: 08/06/[address] [facility] [address] [place] [address]
--- NOTE | 2018-08-07 19:21 | MORECARE ---
CASE MANAGEMENT DISCHARGE SUMMARY PATIENT: MAUDE PERSAUD UNIT: [id number] ADM DATE: 08/06/18 AGE: 47 : [birth year] SEX: M ROOM/BED: [facility] AUTHOR: SEEMA RAMIREZ PHYSICIAN: REFERRING PHYSICIAN: DARLING HOLLAND MD DATE OF SERVICE: 08/07/18 Discharge Plan Patient Name: MAUDE PERSAUD [facility] [facility] 1970 Planned Disposition: Home Anticipated Discharge Date: Discharge Date: 08/07/2018 Expected LOS: Initial Reviewer: [email or web address] Initial Review Date: 08/06/2018 Generated: 08/07/18 8:20 pm Patient Name: MAUDE PERSAUD Page 56133 at 1921 All edits/amendments must be made on the electronic document DICTATION DATE: 08/07/181919 PAWN BROKER: VANESSA 08/07/181919 RPT#: [id number] DC DATE:08/07/18 STATUS: DIS IN [facility] [address] [place] [address] END OF REPORT
--- NOTE | 2018-08-07 19:27 | MORECARE ---
CASE MANAGEMENT DISCHARGE SUMMARY PATIENT: MAUDE PERSAUD UNIT: [id number] ADM DATE: 08/06/18 AGE: 47 : 66 SEX: M ROOM/BED: D.03 AUTHOR: ASHLEY,DOC PHYSICIAN: REFERRING PHYSICIAN: DARLING HOLLAND MD DATE OF SERVICE: 08/07/18 Discharge Plan Patient Name: MAUDE PERSAUD Facility: [facility]:[place] : 1970 Planned Disposition: Home Anticipated Discharge Date: Discharge Date: 08/07/2018 Expected LOS: Initial Reviewer: [email or web address] Initial Review Date: 08/06/2018 Generated: 08/07/18 8:27 pm Comments DCP- Discharge Planning Updated by [email or web address]: Beba Trinidad on 08/07/18 6:[address] Patient Name: MAUDE PERSAUD Admission Status: Elective Accout number: [id number] Admission Date: 08-06-2018 : 1970 Admission Diagnosis: Attending: DARLING HOLLAND Current LOS: 1 Anticipated DC Date: Planned Disposition: Home Primary Insurance: [employer] PPO Discharge Planning Comments: CM met with patient at bedside. Patient states he lives at home with family. Patient plans to return to his home upon discharge. Patient denies any medical equipment in the home. He also denies any services prior to admission. Patient denies any discharge needs at this time. CM will continue to follow and assist as needed with discharge planning / needs. Wood Router: Beba Trinidad DCPIA - Discharge Planning Initial Assessment Updated by [email or web address]: Beba Trinidad on 08/07/18 7:21 pm * Is the patient Alert and Oriented? Yes * How many steps to enter\exit or inside your home? * PCP NO PCP * [facility] * Preadmission Environment Home with Family * ADLs Independent * Equipment None * List name and contact numbers for known caregivers / representatives who currently or will assist patient after discharge: JOSE GUADALUPE PERSAUD - DAUGHTER- [phone] * Verbal permission to speak to the caregivers and representatives has been obtained from the patient. Yes * Community resources currently utilized None * Additional services required to return to the preadmission environment? No * Can the patient safely return to the preadmission environment? Yes * Has this patient been hospitalized within the prior 30 days at any hospital? No Last DP export: 08/07/18 6:20 p Patient Name: MAUDE PERSAUD Page 03761 at 1927 All edits/amendments must be made on the electronic document DICTATION DATE: 08/07/181925 REGIONAL CLINICAL RESEARCH ASSOCIATE: VANESSA 08/07/181925 RPT#: [id number] DC DATE:08/07/18 STATUS: DIS IN [facility] [address] [place] [address] END OF REPORT
== END 2018-08-07 17:58 | disposition home or self-care (01) | DRG 246 ==
LOC: D.CATH 10:30 → D.CVICU 19:57
PROVIDERS: ADMIT Internal Medicine Interventional Cardiology
PROC: 4A023N7 Measurement of Cardiac Sampling and Pressure, Left Heart, Percutaneous Approach (ICD-10-PCS; 2018-08-06)
PROC: 027037Z Dilation of Coronary Artery, One Artery with Four or More Drug-eluting Intraluminal Devices, Percutaneous Approach (ICD-10-PCS; principal; 2018-08-06 13:00)
PROC: B2111ZZ Fluoroscopy of Multiple Coronary Arteries using Low Osmolar Contrast (ICD-10-PCS; 2018-08-06 13:00)
PROC: B2151ZZ Fluoroscopy of Left Heart using Low Osmolar Contrast (ICD-10-PCS; 2018-08-06 13:00)
DX: I25.119 Atherosclerotic heart disease of native coronary artery with unspecified angina pectoris (principal); E78.5 Hyperlipidemia, unspecified; I70.219 Atherosclerosis of native arteries of extremities with intermittent claudication, unspecified extremity; F17.200 Nicotine dependence, unspecified, uncomplicated; I25.82 Chronic total occlusion of coronary artery

== ENCOUNTER 2018-08-16 11:28 | Outpatient (CLI) | payer OTHER ==
[~2018-08-16] VITALS: Ht 180.3 cm; Wt 100.0 kg
--- NOTE | ~2018-08-16 | HEMODYNAMI ---
PATIENT:MAUDE PERSAUD MEDICAL RECORD: [id number] : 66 LOCATION:D.CAT ADMISSION DATE: 08/16/18 Generatedon:08/16/201814:56 Patient name: MAUDE PERSAUD Patient #: [id number] SSN: : 1970 Date of study: 08/16/2018 Page: Of Hemodynamic Procedure Report Patient Data Patient Demographics Procedure consent was obtained First Name: MAUDE Gender: Male Last Name: CORI : 1970 [facility] Initial: JULIO Age: 47 year(s) Patient #: [id number] Race: Unknown Additional ID: [id number] Contact details [address]: [address] [place] [address] rd State: [place] City: [place] Zip code: [address] Past Medical History Allergies Allergen Reaction Date Comments Reported Penicillins 08/06/2018 Admission Admission Data Admission Date: 08/16/2018 Admission Time: 11:28 Height (in.): 71 BSA: 2.2 (m2) Height (cm.): 180.34 BMI: 30.96 (kg/m2) Weight (lbs.): 222 Weight (kg.): 100.7 Procedure Procedure Types Cath Procedure PCI Procedure Coronary Stent Coronary Stent Initial Procedure Description Procedure Date Procedure Date: 08/16/2018 Procedure Start Time: 14:40 Procedure End Time: 14:52 Procedure Staff Name Function Carrie Pearce RT Monitor Belen Horta RT Monitor Eugenia Benavidez RT Scrub Viviane Capone RN Nurse Marshal Shankar MD Performing Physician Procedure Data Cath Procedure Fluoroscopy Diagnostic fluoroscopy Total fluoroscopy Time: 3.8 time: 3.8 min min Diagnostic fluoroscopy Total fluoroscopy dose: 417 dose: 417 mGy mGy Contrast Material Contrast Material Type Amount (ml) Isovue 300 53 Entry Location Entry Primary Successful Side Size Upsize Upsize Entry Closure Oliva ccessful Closure Location (Fr) 1 (Fr) 2 (Fr) Remarks Device Remarks Radial Right 6 Fr Mechanical artery Short Compression Estimated blood loss: 5 ml Procedure Complications No complications Procedure Medications Medication Administration Route Dosage 0.9% NaCl I.V. 100 ml/hr Oxygen etCO2 Nasal cannula 2 l/min Lidocaine 2% added to field 20 Heparin Flush Bag added to field 2 bags (1000units/500ml NS) Radial Cocktail added to field 1 syringe (Verapomil 2mg/Nitro 400mcg/Heparin 1500units) Versed I.V. 2 mg Fentanyl I.V. 50 mcg Versed I.V. 1 mg Fentanyl I.V. 25 mcg Heparin Bolus I.V. 5000 units Hemodynamics Rest BSA: 2.2 (m2) O2 Consumption: Estimated: 258.45 (ml/min) O2 Consumption indexed: Estimated:117.48 (ml/min/m) Heart Rate: 64 (bpm) Snapshots Pre Cath Intra NCS Post Cath Vital Signs Time Heart Resp SPO2 etCO2 NIBP (mmHg) Rhythm Pain Sedation Rate (ipm) (%) (mmHg) Status Level (bpm) 14:26:36 66 14 97 38 136/83(127) NSR 0 (11) 10(A) , No pain 14:30:58 64 12 97 35.2 137/82(112) NSR 0 (11) 10(A) , No pain 14:35:24 70 13 96 38.2 132/75(122) NSR 0 (11) 10(A) , No pain 14:39:38 79 11 96 30.5 120/85(112) NSR 0 (11) 10(A) , No pain 14:43:50 81 11 98 27 111/77(92) NSR 0 (11) 9(A) , No pain 14:48:02 74 10 97 35.2 122/75(93) NSR 0 (11) 9(A) , No pain 14:52:18 68 11 96 38.2 138/84(111) NSR 0 (11) 10(A) , No pain Medications Time Medication Route Dose Verified Delivered Reason Not es Effectiveness by by 14:31:29 0.9% NaCl I.V. 100 Marshal Pan used for ml/hr VonnieJean Capone procedure MD WARNER 14:31:35 Oxygen etCO2 2 l/min Marshal Pan used for Nasal [facility] Jean Capone procedure cannula MD WARNER 14:31:40 Lidocaine 2% added 20ml Marshal Araya for local to vial [place] Vonnie anesthetic field MD MAC 14:31:45 Heparin Flush added 2 bags Marshal Araya used for Bag to [facility] procedure (1000units/500ml field MD MAC NS) 14:31:52 Radial Cocktail added 1 Marshal Araya used for (Verapomil to syringe [facility] procedure 2mg/Nitro field MD MAC 400mcg/Heparin 1500units) 14:34:23 Versed I.V. 2 mg Marshal Viviane for sedation [facility] Jean Capone MD RN 14:34:29 Fentanyl I.V. 50 mcg Marshal Viviane for sedation [facility] Jean Capone MD RN 14:40:24 Versed I.V. 1 mg Marshal Viviane for sedation [facility] Jean Capone MD RN 14:40:28 Fentanyl I.V. 25 mcg Marshal Viviane for sedation St Jean Capone MD RN 14:45:47 Heparin Bolus I.V. 5000 Marshal Viviane for april ified units [facility] anticoagulation with Dr. MAC RN [place] Procedure Log Time Note 14:17:16 Carrie Pearce RT(R) sent for patient. Start room use. 14:17:17 Signed procedure consent form obtained from patient. 14:17:18 Diagnostic Cath status Elective 14:17:19 Time tracking: Regular hours (M-F 7:00 - 5:00) 14:17:22 Plan of Care:Hemodynamics will remain stable., Cardiac rhythm will remain stable., Comfort level will be maintained., Respiratory function will remain adequate., Patient/ family verbilizes understanding of procedure., Procedure tolerated without complication., Recovers from procedure without complications.. 14:18:37 Patient Height : 71 inches 14:18:41 Patient Weight : 222 lbs 14:25:15 Vital chart was started 14:28:15 Patient received from Pre/Post Procedure Room to CCL 1 Alert and oriented. Tansferred to table in Supine position. 14:29:13 Warm blankets applied, and jerson hugger turned on for patient comfort. 14:29:14 Correct patient and procedure confirmed by team. 14:29:15 ECG and BP/O2 sat monitors applied to patient. 14:29:26 Baseline sample Acquired. 14:29:29 Rhythm: sinus rhythm 14:29:31 Full Disclosure recording started 14:29:35 H&P Date Dictated: 08/16/2018 Within 30 days and on chart., H&P Addendum completed by physician on day of procedure. (MUST COMPLETE FOR ALL OUTPATIENTS). 14:29:37 Pre-procedure instructions explained to patient. 14::38 Pre-op teaching completed and patient verbalized understanding. 14::39 Family in waiting room. 14:29:40 Patient NPO since Midnight. 14::42 Is the patient allergic to Iodine/contrast media? No. 14::44 Was the patient premedicated? No 14::44 Is patient on blood thinner?Yes 14::47 ACC The patient was administered the following blood thiners within the last 24 hours: ACCEffient 14:29:50 Patient diabetic? No. 14::53 Previous problem with sedation/anesthesia? No ? 14:29:54 Snore? Yes 14:29:55 Sleep apnea? No 14:29:56 Deviated septum? No 14::57 Opens mouth fully? Yes 14:29:58 Sticks out tongue? Yes 14:30:00 Airway obstruction? No ? 14:30:02 Dentures? No ? 14:30:07 Pre procedure: right dorsailis pedis pulse 2+ Normal; easily identifiable; not easily obliterated 14:30:10 Pre procedure: left dorsailis pedis pulse 2+ Normal; easily identifiable; not easily obliterated 14:30:14 Patient pain scale 0/10 ?. 14:31:29 0.9% NaCl 100 ml/hr I.V. was administered by Viviane Capone RN; used for procedure; 14:31:35 Oxygen 2 l/min etCO2 Nasal cannula was administered by Viviane Capone RN; used for procedure; 14:31:40 Lidocaine 2% 20ml vial added to field was administered by Marshal Shankar MD; for local anesthetic; 14:31:45 Heparin Flush Bag (1000units/500ml NS) 2 bags added to field was administered by Marshal Shankar MD; used for procedure; 14:31:52 Radial Cocktail (Verapomil 2mg/Nitro 400mcg/Heparin 1500units) 1 syringe added to field was administered by Marshal Shankar MD; used for procedure; 14:32:16 IV patent on arrival in left forearm with 0.45%NaCl at [facility]. 14:32:22 Lab results completed and on chart. 14:32:50 Right Radial & Right Groin area was prepped with chlora-prep and draped in sterile fashion 14:32:51 Alarms reviewed by RKathleen N. 14:32:52 Sharps counted by scrub and verified by R.N. 14:32:58 Physician arrived 14:33:01 --------ALL STOP TIME OUT------ 14:33:02 Final Timeout: patient, procedure, and site verified with staff and physician. All members of the team are in agreement. 14:33:05 Right Radial & Right Groin site verified by team. 14:33:11 Fire Safety Assessment: A--An alcohol-based skin anteseptic being used preoperatively., B--The operative or invasive procedure is being performed above the xiphoid process or in the oropharynx., C--Open oxygen or nitrous oxide is being used., D--An ESU, laser, or fiber-optic light is being used., E--There are other possible contributors. 14:33:17 Physical assessment completed. ASA score P 2 - A patient with mild systemic disease as per Marshal Shankar MD. 14:33:22 Sedation plan: IV Moderate Sedation Medication:Versed, Fentanyl 14:34:23 Versed 2 mg I.V. was administered by Viviane Capone RN; for sedation; 14:34:29 Fentanyl 50 mcg I.V. was administered by Viviane Capone RN; for sedation; 14:36:02 Use device set Radial Dx or PCI 14:36:04 ACIST Syringe (48060) opened to sterile field. 14:36:04 Medline Cath Pack ([id number]) opened to sterile field. 14:36:04 Bag Decanter (2002) opened to sterile field. 14:36:05 DIAGNOSTIC WIRE .035 260cm J wire (122338) opened to sterile field. 14:36:05 ACIST Hand Control (15689) opened to sterile field. 14:36:06 ACIST Manifold (59543) opened to sterile field. 14:36:06 Tegaderm 4 x 4 (1626W) opened to sterile field. 14:36:07 MBrace Wrist Support (300278980) opened to sterile field. 14:36:09 SHEATH 6FR Slender (801060) opened to sterile field. 14:40:10 Procedure started. 14:40:15 Local anesthetic to right radial artery with Lidocaine 2% by Carrie TREADWELL(R).INITIAL ACCESS ONLY 14:40:24 Versed 1 mg I.V. was administered by Viviane Capone RN; for sedation; 14:40:24 A 6 Fr Short sheath was inserted into the Right Radial artery 14:40:28 Fentanyl 25 mcg I.V. was administered by Viviane Capone RN; for sedation; 14:41:17 WHISPER 300cm guide wire ([id number]) opened to sterile field. 14:41:17 INFLATOR Merit BasixCompak (ML5331) opened to sterile field. 14:41:18 GUIDE 6FR XBLAD 3.5 catheter (12082960) opened to sterile field. 14:41:28 6 Fr xblad 3.5 guide catheter was inserted over the wire 14:45:47 Heparin Bolus 5000 units I.V. was administered by Viviane Capone RN; for anticoagulation; verified with Dr. Ahn 14:46:46 LCA angiography performed. 14:46:49 Injector settings: Ml/sec: 3, Volume: 6, 14:47:19 whisper wire advanced. 14:48:57 Place stent Inflation Number: 1 A QUETA RX 3.0 x 15 stent ([id number]) was prepped and advanced across the Mid LAD. The stent was deployed at 14 DOYLE for 0:30 (min:sec). 14:49:55 Inflation number: 2 The stent balloon was then re-inflated across the Mid LAD to 14 DOYLE for 0:30 (min:sec). 14:50:28 Stent catheter was removed intact over wire. 14:50:29 Wire removed. 14:50:30 Guide catheter removed. 14:50:54 TR BAND Standard ([id number]) opened to sterile field. 14:51:08 Sheath removed intact; hemostasis achieved with Mechanical Compression to the Right Radial artery. 14:51:09 Procedure ended.(Physican Out) 14:51:24 Fluoroscopy time 03.80 minutes. 14:51:28 Flurop Dose total: 417 14:51:28 Fluoroscopy dose: 417 mGy 14:51:32 Contrast amount:Isovue 300 53ml. 14:51:33 Sharps counted by scrub and verified by R.N. 14:51:36 TR band inflated with 10cc of air. 14:51:38 Insertion/operative site no bleeding no hematoma. 14:51:46 Post right radial artery:stable 14:51:48 Post Procedure Pulses reassessed and unchanged 14:51:51 Post procedure rhythm: unchanged. 14:51:54 Estimated blood loss: 5 ml 14:51:56 Post procedure instruction explained to patient.Patient verbalizes understanding. 14:51:57 Patient needs reinforcement of post procedure teaching. 14:52:11 Procedure and supply charges have been captured, reviewed, submitted and are correct. 14:52:15 Procedure Complication : No complications 14:52:19 Vital chart was stopped 14:52:20 See physician's report for complete and final results. 14:52:27 Report given to Pre/Post Procedure Room. 14:52:30 Patient transfered to Pre/Post Procedure Room with Stretcher. 14:52:32 Procedure ended. 14:52:32 Full Disclosure recording stopped 14:52:46 ACC-PCI Only Patient was given prescriptions, or instructed by Marshal Shankar MD to start/continue the following medications upon discharge: Effient 14:52:48 End room use (Document Last) Intervention Summary Intervention Notes Time ActionType Lesion and Equipment Used Action# Pressure Duration Attributes 14:48:57 Place stent Mid LAD QUETA RX 3.0 x 1 14 00:30 15 stent ([id number]) 14:49:55 Reinflate Mid LAD QUETA RX 3.0 x 2 14 00:30 stent 15 stent balloon ([id number]) Device Usage Item Name Manufacture Quantity Catalog [facility] Lot# / Number Charge Number Stock Stock Serial# Code ACIST Syringe Acist 1 55092 686431 791865 218085 20 (30722) Medical Systems Inc Medline Cath Medline 1 [id number] 967832 53190 399004 5 Pack ([id number]) Bag Decanter Microtek 1 797769 22762 256311 5 () Medical Inc. DIAGNOSTIC St Be 1 118242 554997 131917 363166 30 WIRE .035 260cm J wire (799761) ACIST Hand Acist 1 19182 974145 356406 112244 5 Control Medical (75316) Systems Inc ACIST Manifold Acist 1 74487 273816 755909 850724 5 (78845) Medical Systems Inc Tegaderm 4 x 4 3M 1 1626W 068687 395332 047153 5 (1626W) MBrace Wrist Advanced 1 140-0250-00 041379 58560 667349 5 Support Vascular (823782651) Dynamics SHEATH 6FR Terumo 1 [id number] 429216 254821 457425 5 Slender (80-1060) WHISPER 300cm Burrows 1 [id number] 549344 208293 467839 5 guide wire Vascular (2967065EQ) INFLATOR Merit Merit 1 LE3048 470097 086082 287751 15 [facility] Medical (DD8077) GUIDE 6FR Cardinal 1 [id number] 604412 761209 107827 10 XBLAD 3.5 Health catheter (57090555) QUETA RX 3.0 x Medtronic 1 [id number] 877791 4494265 047797 5 [id number] 15 stent ([id number]) TR BAND Terumo 1 [id number] 871864 573366 631625 40 Standard ([id number]) Signature Audit [place] Stage Time Signature Unsigned Intra-Procedure 08/16/2018 Carrie Pearce 2:56:53 PM RT(R) Signatures Monitor : Carrie Pearce RT Signature : Date : Time : Monitor : Belen Horta Signature : RT Date : Time : [facility] [address] [place] [address]
[~2018-08-16 11:28] MED LIST changes: +EFFIENT10 MG PO
[2018-08-16 11:47] VITALS: BP 137/83; Ht 180.3 cm; Wt 100.0 kg
[2018-08-16 11:58] LABS: BASOPHILS 0.6 % (0-2); EOSINOPHILS 4.9 % (0-7); HEMATOCRIT 42.8 % (42.0-54.0); HEMOGLOBIN 14.4 g/dL (13.5-17.5); IMMATURE GRANULOCYTES 0.3 % (0-5); LYMPHOCYTES 41.9 % (15-50); MCH 30.8 pg (26.0-34.0); MCHC 33.6 g/dL (31.0-37.0); MCV 91.6 fL (80.0-100.0); MEAN PLATELET VOLUME 8.8 fL (7.4-10.4); MONOCYTES 4.5 % (2-11); NEUTROPHILS 47.8 % (40-80); RBC 4.67 10x6/uL (4.20-6.10); RDW 13.6 % (11.5-14.5); WBC 7.2 10x3/uL (4.8-10.8)
[2018-08-16 12:08] LABS: CALC OSMOLALITY 279 mosm/kg (275-300); CALCIUM 9.5 mg/dL (8.5-10.1); CHLORIDE - SERUM 103 mmol/L (98-107); GLUCOSE 96 mg/dL (74-106); POTASSIUM - SERUM 4.6 mmol/L (3.5-5.1); SODIUM 140 mmol/L (136-145); UREA NITROGEN 16 mg/dL (7-18); eGFR NON AFRICAN AMERICAN 84 mL/min (90-120)
[2018-08-16 12:11] LABS: PLATELET COUNT 458 10x3/uL (130-400)
--- NOTE | 2018-08-16 15:15 | NUR ---
2L NC, NO RESP DISTRESS. RIGHT WRIST TR BAND CDI, NO BLEEDING OR HEMATOMA NOTED. NO C/O PAIN OR NAUSEA. VSS. FAMILY AT BEDSIDE, CALL LIGHT WITHIN REACH.
--- NOTE | 2018-08-16 15:45 | NUR ---
SIPPING ON DRINK AND EATING SANDWICH WITH NO C/O NAUSEA. RIGHT WRIST TR BAND CDI, NO BLEEDING OR HEMATOMA NOTED. DENIES ANY NEEDS AT THIS TIME. VSS. WILL CONTINUE TO MONITOR.
--- NOTE | 2018-08-16 16:00 | NUR ---
RESTING COMFORTABLY WITH NO C/O. RIGHT WRIST TR BAND CDI, NO BLEEDING OR HEMATOMA NOTED. NO NEEDS VOICED. VSS. CALL LIGHT WITHIN REACH.
--- NOTE | 2018-08-16 17:45 | NUR ---
3CC OF AIR REMOVED FROM TR BAND WITH NO BLEEDING NOTED. VSS. WILL CONTINUE TO MONITOR.
--- NOTE | 2018-08-16 18:10 | NUR ---
3CC OF AIR REMOVED FROM TR BAND WITH NO BLEEDING NOTED.
--- NOTE | 2018-08-16 18:30 | NUR ---
2CC OF AIR REMOVED FROM TR BAND WITH NO BLEEDING NOTED. RIGHT PIV D/C'D WITH CATHETER INTACT, BAND AID TO SITE. UP TO BEDSIDE TO GET DRESSED. AMBULATED TO RESTROOM.
--- NOTE | 2018-08-16 18:38 | NUR ---
REMAINING AIR REMOVEDF ROM TR BAND WITH NO BLEEDING NOTED. DRESSING PLACED TO SITE. DISCHARGE INSTRUCTIONS GIVEN, VERBALIZED UNDERSTANDING.
--- NOTE | 2018-08-16 18:50 | NUR ---
TAKEN OUT VIA WHEELCHAIR BY CATH ELECTRONICS REPAIR TECHNICIAN. LEFT FACILITY WITH FAMILY AND ALL PERSONAL BELONGINGS.
--- NOTE | 2018-08-18 10:16 | OP ---
PATIENT NAME: MAUDE PERSAUD MEDICAL RECORD: [id number] :66 LOCATION:D.CAT ADMISSION DATE: SURGEON: DARLING HOLLAND MD DATE OF OPERATION: 08/16/2018 PROCEDURE: Stent to the LAD. DESCRIPTION OF PROCEDURE: A radial sheath placed in the right radial artery. An XB LAD 3.5 guiding catheter provided good catheter support followed by 300 cm Whisper wire was placed across the tightly occluded LAD. Distal portion of the vessel, stent deployed was a 3.0 x 15 mm Juan drug-eluting stent up to 14 atmospheres. Final angiography shows excellent resolution of 80% stenosis throughout the takeoff of the septal. There was no significant residual. HAILEY flow was 3 throughout the procedure. Sheath was closed. TR band. TRANSINT:[id number] Voice Confirmation ID: [id number] DOCUMENT ID: [id number] DARLING HOLLAND MD at 1016 CC: [id number] DICTATION DATE: 08/16/18 1500 CONTROLS OPERATOR MOLDED GOODS: 08/16/181917 DEP CLI 08/16/18 [facility] [address] [place] [address]
== END 2018-08-16 18:50 | disposition home or self-care (01) ==
LOC: D.CATH 11:28
PROVIDERS: ATTEND Internal Medicine Interventional Cardiology
DX: I25.119 Atherosclerotic heart disease of native coronary artery with unspecified angina pectoris (principal); Z01.812 Encounter for preprocedural laboratory examination